=== PATIENT | male | born 1965 | race Caucasian/White ===

== ENCOUNTER 2021-10-30 15:21 | Outpatient (CLI) | payer OTHER, SELFPAY | END 2021-10-30 15:22 | disposition home or self-care (01) | LOC: CSHRAD 15:21 → CSHCT 15:22 | PROVIDERS: ATTEND Family Medicine | DX: Z13.6 Encounter for screening for cardiovascular disorders (principal); I25.10 Atherosclerotic heart disease of native coronary artery without angina pectoris | CPT/HCPCS: 75571 ==